=== PATIENT | female | born 2000 | race Hispanic/Latino ===

== ENCOUNTER → 2023-08-11 | Outpatient (CLI) | payer OTHER ==
[2023-08-11 10:14] LABS: ALBUMIN 4.1 g/dL (3.5-5.0); BILIRUBIN,DIRECT 0.1 mg/dL (0.0-0.3); BILIRUBIN,TOTAL 0.4 mg/dL (0.2-1.0); TOTAL PROTEIN, SERUM 8.1 g/dL (6.0-8.3)
[2023-08-12 15:14] LABS: HEPATITIS A ANTIBODY IGM Negative (Negative)
[2023-08-12 15:15] LABS: HEPATITIS B CORE IGM Negative (Negative); HEPATITIS Bs ANTIGEN SCREEN P Negative (Negative); HEPATITIS C VIRUS ANTIBODY Non Reactive (Non Reactive)
== END | disposition home or self-care (01) ==
LOC: LAB 08:36
PROVIDERS: ATTEND Nurse Practitioner Family
DX: R74.01 Elevation of levels of liver transaminase levels (principal)
CPT/HCPCS: 36415; 80076; 82150; 83690; 86705; 86709; 87340

== ENCOUNTER 2024-02-18 11:03 | Emergency (ER) | payer OTHER ==
[~2024-02-18] VITALS: Ht 154.9 cm; Wt 93.9 kg
[2024-02-18 11:55] LABS: BASOPHILS # (AUTO) 0.06 K/uL (0.00-0.20); BASOPHILS % (AUTO) 0.5 % (0.0-5.0); EOSINOPHILS # (AUTO) 0.21 K/uL (0.00-0.70); EOSINOPHILS % (AUTO) 1.8 % (0.0-8.0); LYMPHOCYTES # (AUTO) 2.8 K/uL (1.0-4.8); MEAN CORPUSCULAR HEMOGLOBIN 30.4 pg (27.0-33.0); MONOCYTES # (AUTO) 0.9 K/uL (0.1-1.0); MONOCYTES % (AUTO) 7.5 % (3.0-13.0); NEUTROPHILS % (AUTO) 66.4 % (40.0-77.0); PLATELET COUNT (AUTO) 264 K/uL (130-400); RED BLOOD CELL COUNT(AUTO) 4.37 MIL/uL (4.00-5.50); RED CELL DISTRIBUTION WIDTH 13.7 % (11.0-15.5)
[2024-02-18 12:05] LABS: CREATININE 0.8 mg/dL (0.5-1.0); POTASSIUM 3.5 mmol/L (3.5-5.1)
[2024-02-18 12:35] LABS: B-TYPE NATRIURETIC PEPTIDE 27 pg/mL (0-100)
[2024-02-18 14:09] VITALS: BP 130/86; PULSE 81; RESP 18; O2SAT 98
== END 2024-02-18 14:11 | disposition home or self-care (01) ==
LOC: EDH 11:03
DX: O26.891 Other specified pregnancy related conditions, first trimester (principal); R22.43 Localized swelling, mass and lump, lower limb, bilateral; R10.2 Pelvic and perineal pain; Z3A.01 Less than 8 weeks gestation of pregnancy; Z79.899 Other long term (current) drug therapy
CPT/HCPCS: 36415; 80048; 81025; 83880; 84702; 85025; 93005